=== PATIENT | male | born 1960 | race Caucasian/White ===

== ENCOUNTER 2023-04-02 00:36 | Emergency (ER) | payer MEDICAID ==
[2023-04-02] MEDS ORDERED: Ketorolac 30 MG/ML SDV IM ONE (01:15)
== END 2023-04-02 01:55 | disposition home or self-care (01) ==
LOC: JP.ED 00:36
DX: S93.402A Sprain of unspecified ligament of left ankle, initial encounter (principal); I10 Essential (primary) hypertension; F17.210 Nicotine dependence, cigarettes, uncomplicated; X50.1XXA Overexertion from prolonged static or awkward postures, initial encounter
CPT/HCPCS: 73610; 96372; 99283; J1885